=== PATIENT | female | born 1980 | race American Indian/Alaskan Native ===

== ENCOUNTER 2018-08-28 10:09 | Outpatient (CLI) | payer OTHER | END 2018-08-29 10:25 | disposition home or self-care (01) | LOC: OBS/DEL 10:09 | DX: O23.43 Unspecified infection of urinary tract in pregnancy, third trimester (principal); Z34.03 Encounter for supervision of normal first pregnancy, third trimester ==

== ENCOUNTER 2018-10-28 06:21 | Inpatient (IN) | payer OTHER ==
[~2018-10-28] VITALS: Ht 137.2 cm; Wt 3.2 kg
[2018-10-28] MEDS ORDERED: ASA81 MG (09:19)
[2018-10-28] MEDS ORDERED: PRENATAL TABLE1 EAC1 PO (09:19)
[2018-10-31] MEDS ORDERED: PRENATAL + DHA1 EAC1 PO (09:11)
[2018-10-31] MEDS ORDERED: EC-NAPROSYN500 MG PO (09:12)
== END 2018-10-31 13:55 | disposition home or self-care (01) | DRG 785 ==
LOC: LDR 06:21 → OB/GYN 06:21
PROVIDERS: ADMIT Obstetrics & Gynecology
PROC: 4A1HXCZ Monitoring of Products of Conception, Cardiac Rate, External Approach (ICD-10-PCS; 2018-10-28)
PROC: 4A033R1 Measurement of Arterial Saturation, Peripheral, Percutaneous Approach (ICD-10-PCS; 2018-10-28)
PROC: 0UB70ZZ Excision of Bilateral Fallopian Tubes, Open Approach (ICD-10-PCS; 2018-10-28)
PROC: 10D00Z1 Extraction of Products of Conception, Low, Open Approach (ICD-10-PCS; principal; 2018-10-28 10:15)
DX: O60.14X0 Preterm labor third trimester with preterm delivery third trimester, not applicable or unspecified (principal); O34.211 Maternal care for low transverse scar from previous cesarean delivery; O82 Encounter for cesarean delivery without indication; Z3A.36 36 weeks gestation of pregnancy; Z37.0 Single live birth; Z30.2 Encounter for sterilization